=== PATIENT | male | born 1965 | race Caucasian/White ===

== ENCOUNTER 2018-08-18 19:51 | Emergency (ER) | payer MEDICARE ==
[~2018-08-18] VITALS: Ht 172.7 cm; Wt 86.2 kg
[2018-08-18 21:26] LABS: Basophils # (auto) 0.3 uL; Basophils % (auto) 2.9 % (0.0-2.0); Eosinophils # (auto) 0.2 uL; Eosinophils % (auto) 2.4 % (0.0-7.0); Hematocrit 46.1 % (41.0-53.0); Hemoglobin 15.4 g/dL (13.5-17.5); Lymphocytes # (auto) 1.5 uL; Lymphocytes % (auto) 15.1 % (10.0-50.0); Mean Corpuscular Hemoglobin 30.1 pg (28.0-32.0); Mean Corpuscular Hgb Conc. 33.4 g/dL (32.0-36.0); Mean Corpuscular Volume 90.2 fL (80.0-100.0); Monocytes # (auto) 0.7 uL; Monocytes % (auto) 7.4 % (0.0-12.0); Neutrophils # (auto) 7.3 uL; Neutrophils % (auto) 72.2 % (37.0-80.0); Platelet Count (auto) 368 10^3/uL (140-450); Red Blood Cells 5.12 10^6/uL (4.5-5.90); Red Cell Distribution Width 13.8 % (11.8-14.3); White Blood Cell 10.1 10^3/uL (4.4-10.8)
[2018-08-18 21:47] LABS: Alanine Aminotransferase 30 U/L (16-61); Albumin 3.9 g/dL (3.4-5.0); Anion Gap 11 (5-15); Aspartate Aminotransferase 17 U/L (15-37); BUN/Creatinine Ratio 16.4; Blood Urea Nitrogen 21 mg/dL (7-18); Calcium 8.5 mg/dL (8.5-10.1); Carbon Dioxide 25 mmol/L (21-32); Chloride 108 mmol/L (98-107); GFR African American 76 mL/min; GFR Non-African American 63 mL/min; Glucose 86 mg/dL (74-106); Magnesium 2.7 mg/dL (1.6-2.6); Potassium 4.1 mmol/L (3.5-5.1); Sodium 144 mmol/L (136-145)
[2018-08-18 21:52] LABS: Alkaline Phosphatase 98 U/L (45-117); Bilirubin, Total 0.7 mg/dL (0.2-1.0); Total Protein 7.5 g/dL (6.4-8.2)
[2018-08-19 04:01] VITALS: BP 135/84
== END 2018-08-19 05:11 | disposition home or self-care (01) ==
LOC: ER 19:54
DX: S22.20XA Unspecified fracture of sternum, initial encounter for closed fracture (principal); V49.9XXA Car occupant (driver) (passenger) injured in unspecified traffic accident, initial encounter; Y93.89 Activity, other specified; Y92.89 Other specified places as the place of occurrence of the external cause; Y99.8 Other external cause status
CPT/HCPCS: 36415; 71250; 80053; 83735; 84484; 85025; 93005; 94761